=== PATIENT | female | born 1950 | race Caucasian/White ===

== ENCOUNTER 2017-06-07 11:44 | Emergency (ER) | payer OTHER ==
[~2017-06-07] VITALS: Ht 149.9 cm; Wt 74.0 kg
[~2017-06-07 11:44] MED LIST: ALPRAZOLAM0.25 M2 PO; AMBIEN5 MG PO; ANASTROZOLE1 MG PO; CARDIZEM CD,CA240 MG PO; ERGOCALCIF50000 UNIT PO; FENOFIBRATE160 M1 PO; FUROSEMIDE40 MG PO; GLUCOPHAGE500 MG PO; HYDROCHLOROTHIA25 MG PO; K-DUR10 MEQ PO; LIPITOR10 MG PO; LISINOPRIL20 MG PO; LISINOPRIL40 MG PO; LO-DOSE ASPIRIN81 M2 PO; LOPRESSOR50 MG PO; METFORMIN HCL500 MG PO; NICOTINE PATCH1 EAC2 TD; NIFEDIPINE ER60 MG PO; PANTOPRAZOLE SO40 MG PO; PREDNISONE20 MG PO; SIMVASTATIN10 MG PO; SPIRIVA RESPIMAT4 GM IH; TRIAMTERENE W/1 EACH PO
[2017-06-07 13:18] LABS: EOSINOPHIL (%) 3.7 % (0-5); EOSINOPHIL COUNT 0.2 K/uL (0-0.3); HEMATOCRIT 49.7 % (36.0-46.0); IMMATURE GRANULOCYTE (%) 1.2 % (0.0-0.7); IMMATURE GRANULOCYTE COUNT 0.1 K/uL; INSTRUMENT ABS NEUTROPHIL CT 4.2 K/uL; MCH 29.2 PG (29.0-34.0); MCHC 33.2 G/DL (30.0-36.0); MEAN PLAT.VOLUME 10.4 uM^3 (9.5-12.4); MONOCYTE (%) 5.3 % (3-12); MONOCYTE COUNT 0.3 K/uL (0-0.8); NEUTROPHIL (%) 71.9 % (45-76); NEUTROPHIL COUNT 4.2 K/uL (1.8-6.4); PLATELET COUNT 174 K/uL (156-360); RBC DIS.WIDTH-CV 13.9 % (11.8-14.6); RED BLOOD COUNT 5.65 M/uL (3.80-5.20); WHITE BLOOD COUNT 5.9 K/uL (4.1-10.2)
[2017-06-07 13:24] LABS: PROTHROMBIN TIME 11.1 SEC (10.2-12.9)
[2017-06-07 13:25] LABS: CHLORIDE 105 mEq/L (99-109); POTASSIUM 3.4 mEq/L (3.7-5.4); SODIUM 144 mEq/L (136-147)
[2017-06-07 13:28] LABS: GLUCOSE 203 mg/dL (70-99)
[2017-06-07 13:29] LABS: ANION GAP 10 MEQ/L (2-14); TOTAL BILIRUBIN 0.5 mg/dL (0.0-1.0)
[2017-06-07 13:31] LABS: ALKALINE PHOSPHATASE 75 IU/L (3-129); GFR ESTIMATE (CALCULATED) 59 mL/min/
[2017-06-07 13:32] LABS: UREA NITROGEN (BUN) 13 mg/dL (9-23)
[2017-06-07 13:33] LABS: DIRECT BILIRUBIN 0.2 mg/dL (0.0-0.3)
[2017-06-07 13:35] LABS: LIPASE 92 U/L (1.0-51.0)
[2017-06-07 13:37] LABS: TROP-I INTERPRETATION NEGATIVE; TROPONIN-I 0.01 ng/mL (0.0-0.30)
[2017-06-07] MEDS ORDERED: ZANTAC300 MG PO (14:55)
[2017-06-07 15:38] VITALS: BP 128/84
== END 2017-06-07 15:39 | disposition home or self-care (01) ==
LOC: EME 11:44
PROVIDERS: Emergency Medicine
DX: R10.12 Left upper quadrant pain (principal); R10.13 Epigastric pain; R11.0 Nausea; K80.20 Calculus of gallbladder without cholecystitis without obstruction; K76.0 Fatty (change of) liver, not elsewhere classified; N20.0 Calculus of kidney; Q61.02 Congenital multiple renal cysts; Z90.710 Acquired absence of both cervix and uterus; Z87.442 Personal history of urinary calculi; I10 Essential (primary) hypertension; E78.5 Hyperlipidemia, unspecified; Z79.82 Long term (current) use of aspirin; F17.200 Nicotine dependence, unspecified, uncomplicated
CPT/HCPCS: 71020; 74177; 80048; 80048 91; 80076; 83690; 84484; 85025; 85610; 99281; 99284

== ENCOUNTER 2017-07-22 12:12 | Emergency (ER) | payer OTHER ==
[~2017-07-22] VITALS: Ht 149.9 cm; Wt 74.4 kg
[~2017-07-22 12:12] MED LIST changes: +ZANTAC300 MG PO
[2017-07-22 13:10] LABS: HEMATOCRIT 50.3 % (36.0-46.0); MCH 29.4 PG (29.0-34.0); MCHC 33.6 G/DL (30.0-36.0); MCV 87.5 FL (83-99); MEAN PLAT.VOLUME 9.8 uM^3 (9.5-12.4); PLATELET COUNT 171 K/uL (156-360); RBC DIS.WIDTH-CV 13.5 % (11.8-14.6); RBC DIS.WIDTH-SD 42.8 % (39-53); RED BLOOD COUNT 5.75 M/uL (3.80-5.20); WHITE BLOOD COUNT 5.2 K/uL (4.1-10.2)
[2017-07-22 13:18] LABS: CHLORIDE 104 mEq/L (99-109); POTASSIUM 3.6 mEq/L (3.7-5.4); SODIUM 143 mEq/L (136-147)
[2017-07-22 13:20] LABS: GLUCOSE 217 mg/dL (70-99)
[2017-07-22 13:22] LABS: ANION GAP 8 MEQ/L (2-14); TOTAL BILIRUBIN 0.5 mg/dL (0.0-1.0)
[2017-07-22 13:24] LABS: ALKALINE PHOSPHATASE 92 IU/L (3-129); GFR ESTIMATE (CALCULATED) 53 mL/min/
[2017-07-22 13:25] LABS: UREA NITROGEN (BUN) 25 mg/dL (9-23)
[2017-07-22 14:47] LABS: ADD MIUA? YES; BILIRUBIN NEGATIVE; BLOOD LARGE; COLOR YELLOW ((YELLOW)); GLUCOSE (STRIP) 50; KETONES NEGATIVE; LEUKOCYTES LARGE; NITRITE NEGATIVE; PROTEIN (STRIP) 100; SPECIFIC GRAVITY 1.021 (1.000-1.030)
[2017-07-22 14:59] LABS: EPITHELIAL CELLS 1+ /HPF; RED BLOOD CELLS TNTC /HPF (0-5); WHITE BLOOD CELLS TNTC /HPF (0-5)
[2017-07-22 15:00] LABS: BACTERIA 2+ /HPF; MUCUS 1+ /LPF; UCUL ADDED? YES
[2017-07-22] MEDS ORDERED: ZOFRAN ODT4 MG PO (16:28)
[2017-07-22] MEDS ORDERED: PERCOCET 5/31 TABLET PO (16:28)
[2017-07-22] MEDS ORDERED: KEFLEX500 MG PO (16:38)
[2017-07-22 16:43] VITALS: BP 165/79
== END 2017-07-22 16:44 | disposition home or self-care (01) ==
LOC: EME 12:12
DX: N20.0 Calculus of kidney (principal); N39.0 Urinary tract infection, site not specified; Z87.442 Personal history of urinary calculi; I10 Essential (primary) hypertension; E78.5 Hyperlipidemia, unspecified; Z86.73 Personal history of transient ischemic attack (TIA), and cerebral infarction without residual deficits; F17.200 Nicotine dependence, unspecified, uncomplicated
CPT/HCPCS: 71020; 74176; 80053; 81003; 85027; 87086

== ENCOUNTER → 2017-07-24 | Outpatient (CLI) | payer OTHER ==
[~2017-07-24] MED LIST changes: +KEFLEX500 MG PO; +PERCOCET 5/31 TABLET PO; +ZOFRAN ODT4 MG PO
== END | disposition home or self-care (01) ==
LOC: CDC 08:53
DX: R94.31 Abnormal electrocardiogram [ECG] [EKG] (principal)
CPT/HCPCS: 93000

== ENCOUNTER 2017-08-29 16:26 | Observation (INO) | payer OTHER ==
[~2017-08-29] VITALS: Ht 149.9 cm; Wt 72.4 kg
[2017-08-29 17:36] LABS: EOSINOPHIL (%) 2.7 % (0-5); EOSINOPHIL COUNT 0.2 K/uL (0-0.3); HEMATOCRIT 53.6 % (36.0-46.0); IMMATURE GRANULOCYTE (%) 0.3 % (0.0-0.7); INSTRUMENT ABS NEUTROPHIL CT 4.3 K/uL; LYMPHOCYTE COUNT 1.3 K/uL (1.0-2.8); MCH 28.7 PG (29.0-34.0); MCV 86.9 FL (83-99); MEAN PLAT.VOLUME 10.1 uM^3 (9.5-12.4); MONOCYTE (%) 7.4 % (3-12); MONOCYTE COUNT 0.5 K/uL (0-0.8); NEUTROPHIL (%) 68.4 % (45-76); NEUTROPHIL COUNT 4.3 K/uL (1.8-6.4); PLATELET COUNT 181 K/uL (156-360); RBC DIS.WIDTH-CV 13.2 % (11.8-14.6); RBC DIS.WIDTH-SD 41.9 % (39-53); RED BLOOD COUNT 6.17 M/uL (3.80-5.20); WHITE BLOOD COUNT 6.3 K/uL (4.1-10.2)
[2017-08-29 17:45] LABS: CHLORIDE 103 mEq/L (99-109); INTER. NORMALIZED RATIO 1.1; POTASSIUM 3.7 mEq/L (3.7-5.4); PROTHROMBIN TIME 11.7 SEC (10.2-12.9); SODIUM 141 mEq/L (136-147)
[2017-08-29 17:47] LABS: GLUCOSE 104 mg/dL (70-99)
[2017-08-29 17:48] LABS: ANION GAP 11 MEQ/L (2-14); PTT 34.8 SEC (25-37)
[2017-08-29 17:51] LABS: GFR ESTIMATE (CALCULATED) > 59 mL/min/
[2017-08-29 17:52] LABS: UREA NITROGEN (BUN) 14 mg/dL (9-23)
[2017-08-29 17:58] LABS: TROP-I INTERPRETATION NEGATIVE; TROPONIN-I 0.16 ng/mL (0.0-0.30)
[2017-08-29] MEDS ORDERED: CARDIZEM CD,CA240 MG PO (18:54)
[2017-08-29] MEDS ORDERED: MICRO-K10 ME2 PO (18:55)
[2017-08-29] MEDS ORDERED: ZESTRIL20 MG PO (18:56)
[2017-08-29 20:19] VITALS: BP 177/71
[2017-08-29 23:59] VITALS: BP 183/94
[2017-08-30 01:01] LABS: TROP-I INTERPRETATION INDETERMINATE; TROPONIN-I 0.36 ng/mL (0.0-0.30)
[2017-08-30 04:00] VITALS: BP 146/71
[2017-08-30 07:26] VITALS: BP 155/74
[2017-08-30 09:48] LABS: HEMATOCRIT 52.9 % (36.0-46.0); MCH 29.5 PG (29.0-34.0); MCHC 33.5 G/DL (30.0-36.0); MCV 88.2 FL (83-99); MEAN PLAT.VOLUME 10.3 uM^3 (9.5-12.4); PLATELET COUNT 182 K/uL (156-360); RBC DIS.WIDTH-CV 13.2 % (11.8-14.6); RBC DIS.WIDTH-SD 42.5 % (39-53); WHITE BLOOD COUNT 5.4 K/uL (4.1-10.2)
[2017-08-30 09:53] LABS: ALKALINE PHOSPHATASE 74 IU/L (3-129); ANION GAP 8 MEQ/L (2-14); CHLORIDE 102 MEQ/L (99-109); GFR ESTIMATE (CALCULATED) > 59 mL/min/; POTASSIUM 3.9 MEQ/L (3.7-5.4); SAMPLE HEMOLYSIS CHECK 0; SAMPLE ICTERIC CHECK 0; SAMPLE LIPEMIA CHECK 0; SODIUM 140 MEQ/L (136-147); TOTAL BILIRUBIN 0.6 MG/DL (0.0-1.0); UREA NITROGEN (BUN) 15 mg/dL (9-23)
[2017-08-30 09:56] LABS: GLUCOSE 160 mg/dL (70-99)
[2017-08-30 10:08] LABS: TROP-I INTERPRETATION NEGATIVE; TROPONIN-I 0.22 ng/mL (0.0-0.30)
[2017-08-30 11:43] VITALS: BP 161/73
[2017-08-30] MEDS ORDERED: ALPRAZOLAM0.25 M2 PO (14:18)
== END 2017-08-30 14:43 | disposition home or self-care (01) ==
LOC: EME 16:26 → EDOF 18:25 → ENRESERV 18:52 → 5WEST 19:41
PROVIDERS: Emergency Medicine; Internal Medicine
DX: I47.1 Supraventricular tachycardia (principal); I48.0 Paroxysmal atrial fibrillation; I25.10 Atherosclerotic heart disease of native coronary artery without angina pectoris; Z95.5 Presence of coronary angioplasty implant and graft; I25.2 Old myocardial infarction; I10 Essential (primary) hypertension; E78.5 Hyperlipidemia, unspecified; N20.0 Calculus of kidney; E11.9 Type 2 diabetes mellitus without complications; Z85.3 Personal history of malignant neoplasm of breast; Z86.73 Personal history of transient ischemic attack (TIA), and cerebral infarction without residual deficits; E55.9 Vitamin D deficiency, unspecified; J44.9 Chronic obstructive pulmonary disease, unspecified; E53.8 Deficiency of other specified B group vitamins; F17.210 Nicotine dependence, cigarettes, uncomplicated; Z79.82 Long term (current) use of aspirin; Z87.442 Personal history of urinary calculi; Z90.13 Acquired absence of bilateral breasts and nipples; Z79.84 Long term (current) use of oral hypoglycemic drugs
CPT/HCPCS: 71010; 80048; 80053; 81003; 84484; 85025; 85027; 85379; 85610; 85730; 93005; 99281; 99285; C9113; G0378; J0153; J1644